=== PATIENT | male | born 1965 | race Caucasian/White ===

== ENCOUNTER 2020-08-25 13:56 | Emergency (ER) | payer MEDICARE ==
[~2020-08-25] VITALS: Ht 182.9 cm; Wt 83.0 kg
[2020-08-25] MEDS ORDERED: IV NORMAL SALINE 1,000ML 1,000 ML IV ONE ×3 (14:30→16:30)
--- NOTE | 2020-08-25 14:58 | RAD ---
EXAM: CT head without contrast INDICATION: Seizure and fall from standing COMPARISON: None TECHNIQUE: Axial CT imaging through the head without intravenous contrast. One or more of the following individualized dose reduction techniques were utilized for this examinat ion: 1. Automated exposure control 2. Adjustment of the mA and/or kV according to patient size 3. Use of iterative reconstruction technique. FINDINGS: The ventricles and sulci are prominent. There is a mild burden of periventricular and deep hypoattenu ating white matter lesions. Silva-white matter differentiation is maintained. There is no intracrania l hemorrhage, acute infarct, or mass lesion. Basal cisterns are clear. The skull is intact. There is a small right posterior parietal scalp contusion. The visualized parana aureliano sinuses and mastoid air cells are clear. Globes and orbits are intact. IMPRESSION: 1. No acute intracranial abnormality. 2. Small right parietal scalp contusion. Electronically signed by: Tea Yates MD (08/25/2020 2:56 PM) [id number]
--- NOTE | 2020-08-25 15:09 | RAD ---
EXAM: CHEST 1 VIEW History: Dyspnea COMPARISON: None available. TECHNIQUE: Single portable radiograph of the chest FINDINGS: The cardiac silhouette is unremarkable. The lungs are clear bilaterally. The costophrenic sulci are clear and well demarcated. Left-sided Port-A-Cath is identified.. IMPRESSION: No radiographic evidence of an acute cardiopulmonary process. Electronically signed by: Dario Willis MD (08/25/2020 3:06 PM) [id number]
[2020-08-25 15:15] LABS: BASO % 0 % (0-3); EOS % 0 % (0-3); HEMATOCRIT 37.4 % (39.0-53.0); HEMOGLOBIN 12.2 g/dL (13.0-17.5); LYMPH # 0.6 x10^3/uL (1.0-4.8); LYMPH % 16 % (24-48); MEAN CORPUSCULAR HEMOGLOBIN 27 pg (25-35); MEAN CORPUSCULAR HGB CONC 33 g/dL (31-37); MEAN CORPUSCULAR VOLUME 83 fL (79-100); MONO # 0.3 x10^3/uL (0.0-1.1); MONO % 8 % (0-9); NEUT # 2.6 x10^3uL (1.8-7.7); NEUT % 75 % (31-73); PLATELET COUNT 123 x10^3/uL (140-400); RED BLOOD COUNT 4.54 x10^6/uL (4.30-5.70); RED CELL DISTRIBUTION WIDTH 16.4 % (11.5-14.5); WHITE BLOOD COUNT 3.5 x10^3/uL (4.0-11.0)
--- NOTE | 2020-08-25 15:18 | PHYS DOC ---
Past History Past Medical History: Cancer, Diabetes, Hypertension, Seizure, Other Additional Past Medical Histor: Gout Past Surgical History: Knee Replacement Additional Smoking Information: cigars Alcohol Use: None General Adult EDM: Chief Complaint: SEIZURE HPI: HPI: Patient is a 54-year-old male brought in by EMS after he was found on the ground, bystanders reported seizure-like activity. On EMS arrival he was postictal. Patient complaining of a laceration to the back of his head. States that he was putting things in his car that is lasting he remembers before waking up in the ambulance. Patient states he has a history of seizures, last seizure 1 year ago but was not prescribed any medications afterwards. Patient has multiple complaints and says he has not felt well for the past 3 days. States he has had fatigue, shortness of breath, nonproductive cough, vomiting and diarrhea, multiple aches and pains that are chronic. Patient denies any known sick contacts. Patient does not recall all of his medications. Last tetanus vaccine 3 years ago. Has a history of multiple adenoma but does not member his medication Review of Systems: Review of Systems: All other systems within normal limits except for as noted in the HPI Current Medications: Current Meds: Current Medications Medications (Trade) Dose Ordered Sig/Melvi Start Time Stop Time Status Last Admin Dose Admin Sodium Chloride 1,000 ml @ 1,000 mls/hr 1X ONCE 08/25/20 14:30 08/25/20 15:29 UNV Physical Exam: PE: Constitutional: Well developed, well nourished, no acute distress, non-toxic appearance. [] HENT: Normocephalic, small hematoma to parietal scalp with approximately 2 cm laceration, bilateral external ears normal, nose normal. [] Eyes: PERRLA, conjunctiva normal, no discharge. [] Neck: No rigidity, supple, no stridor. [] Cardiovascular: Regular rate and rhythm, brisk cap refill [] Lungs & Thorax: Non labored symmetric respirations, no tachypnea or respiratory distress [] Abdomen: Soft, nondistended. Skin: Warm, dry, no erythema, no rash. [] Back: No tenderness, no CVA tenderness. [] Extremities: No deformities, range of motion grossly intact, no lower extremity edema [] Neurologic: Alert and oriented X 3, no focal deficits noted. [] Psychologic: Affect normal, judgement normal, mood normal. [] Current Patient Data: Vital Signs: Vital Signs Date Time Temp Pulse Resp B/P (MAP) Pulse Ox O2 Delivery O2 Flow Rate FiO2 08/25/20 14:05 96.9 63 16 164/111 (128) 97 Room Air EKG: EKG: Sinus tachycardia, heart rate 106 bpm, normal intervals, no ectopy, no ST elevation or depression [] Radiology/Procedures: Radiology/Procedures: XAM: CT head without contrast INDICATION: Seizure and fall from standing COMPARISON: None TECHNIQUE: Axial CT imaging through the head without intravenous contrast. One or more of the following individualized dose reduction techniques were utilized for this examination: 1. Automated exposure control 2. Adjustment of the mA and/or kV according to patient size 3. Use of iterative reconstruction technique. FINDINGS: The ventricles and sulci are prominent. There is a mild burden of periventricular and deep hypoattenuating white matter lesions. Silva-white matter differentiation is maintained. There is no intracranial hemorrhage, acute infarct, or mass lesion. Basal cisterns are clear. The skull is intact. There is a small right posterior parietal scalp contusion. The visualized paranasal sinuses and mastoid air cells are clear. Globes and orbits are intact. IMPRESSION: 1. No acute intracranial abnormality. 2. Small right parietal scalp contusion. []EXAM: CHEST 1 VIEW History: Dyspnea COMPARISON: None available. TECHNIQUE: Single portable radiograph of the chest FINDINGS: The cardiac silhouette is unremarkable. The lungs are clear bilaterally. The costophrenic sulci are clear and well demarcated. Left-sided Port-A-Cath is identified.. IMPRESSION: No radiographic evidence of an acute cardiopulmonary process. Impressions: Wound cleaned and irrigated with saline, no anesthetic used, 2 natasha placed over laceration without complication. Heart Score: Risk Factors: Risk Factors: DM, Current or recent (<one month) smoker, HTN, HLP, family history of CAD, obesity. Risk Scores: Score 0 - 3: 2.5% MACE over next 6 weeks - Discharge Home Score 4 - 6: 20.3% MACE over next 6 weeks - Admit for Clinical Observation Score 7 - 10: 72.7% MACE over next 6 weeks - Early Invasive Strategies Course & Med Decision Making: Course & Med Decision Making Pertinent Labs and Imaging studies reviewed. (See chart for details) She reports her lactic acid, likely secondary to seizure. Patient is awake aler t and oriented, discussed starting statin medication and patient agrees to plan. Given loading dose of Keppra in the emergency department information to follow-up with neurology for further seizure management. [] Sharron Disclaimer: Sharron Disclaimer: This electronic medical record was generated, in whole or in part, using a voice recognition dictation system. Departure Departure: Impression: Primary Impression: Seizure Additional Impression: Fall Disposition: 01 DC HOME SELF CARE/HOMELESS Condition: STABLE Referrals: PCPAPOLONIA (PCP) MANISHA FLETCHER MD Patient Instructions: Seizure, Adult Additional Instructions: You have been tested for or diagnosed with COVID-19. It is an infection caused by a new type of coronavirus. COVID-19 will cause cold-like or mild flu symptoms in most. It can cause more severe symptoms like problems breathing in some. There is no treatment for COVID-19. The body will clear the infection over time. Self-care will help to ease discomfort. Steps to Take: Self-Care Rest as needed. Healthy habits may help you feel better. Steps include: Choose healthy foods including fruits and vegetables. Drink water throughout the day. Get plenty of sleep each night. If you smoke, try to quit. It may ease breathing. Avoid alcohol. Keep Others Healthy The virus can spread to others. Droplets are released every time you sneeze or cough. The droplets can get into the mouth, nose, or eyes of people near you and lead to infection. To lower the chances of spreading COVID-19 to others: Stay at home until your doctor has said it is safe to leave. If you tested positive this will mean staying isolated until both of the following are true: At least 7 days have passed since the start of illness. You are free of fever for at least 72 hours without the use of medicine. During this time: - Avoid public areas, events, or transportation. Do not return to work or school until your doctor has said it is safe to do so. - Call ahead if you need to go to a medical center. Let them know you may have COVID-19. It will help them guide you where to go. They may also ask you to wear a facemask when you come to the office. - If you call for emergency medical services, let them know you may have COVID- 19. While at home: - Try to avoid close contact with others. Stay about 6 feet away. - If possible, spend most of your time in a separate room from others. - Use a face mask if you will be in close contact with others such as sharing a room or vehicle. - Have someone wipe down common surfaces in the home. Use household cruise counselor every day on areas like doorknobs, counters, or sinks. - Cough or sneeze into a tissue. Throw the tissue away right after use. If a tissue is not available, cough or sneeze into your elbow. - Wash your hands often. Wash them after sneezing or coughing. Use soap and water and wash for at least 20 seconds. Alcohol based hand still cleaner tube can be used if soap and water is not available. - Do not prepare food for others. Avoid sharing personal items like forks, spoons, or toothbrushes. - Avoid close contact with pets while you are sick. There is no evidence of the virus passing to pets. This is a safety step until more is known about this virus. Isolation can be frustrating. Social interaction can help. Keep in touch with friends and family through phone and tech options. You can still interact with others in your home, just keep a safe distance of about 6 feet. Follow-up: Your doctors office will check in with you to see if there are any changes in your health. You may be asked to keep track of symptoms to share with them. They will also let you know when you are clear to be in public again. Problems to Look Out For: Contact your doctor if your recovery is not going as you expect. Get emergency care if you have problems such as: - Trouble breathing - Nonstop chest pain or pressure - Changes in awareness, confusion, or problems waking - Lips or face have bluish color - Worsening of symptoms If you think you have an emergency, call for emergency medical services right away. As taken from [facility] Levetiracetam (LEVETIRACETAM) 500 Mg Tab.er.24h 1 TAB PO BID for seizure for 30 Days, #60 TAB 0 Refills Prov: TORRES GAN MD 08/25/20 TORRES GAN MD Aug 25, 2020 15:18
[2020-08-25 15:24] LABS: CALCIUM 8.4 mg/dL (8.5-10.1); CREATININE 1.5 mg/dL (0.7-1.3); POTASSIUM 3.5 mmol/L (3.5-5.1)
--- NOTE | 2020-08-25 15:24 | EKG ---
[address] [address] Test Date: 2020-08-25 Test Time: 14:40:31 Pat Name: JORI NUÑEZ Department: Room: Gender: M Wellness Specialist: JUSTUS : 1965 Requested By: TORRES GAN Order Number: [id number] Reading MD: Ant Ames Measurements Intervals [place] Rate: 106 P: 0 TX: 164 QRS: 12 QRSD: 78 T: 61 QT: 336 QTc: 448 Interpretive Statements SINUS TACHYCARDIA Electronically Signed On 08-31-2020 14:48:58 INTERPRETIVE NATURALIST by Ant Ames
[2020-08-25 15:30] LABS: ALBUMIN 3.2 g/dL (3.4-5.0); ALBUMIN/GLOBULIN RATIO 0.4 (1.0-1.7); MAGNESIUM 1.5 mg/dL (1.8-2.4); TOTAL BILIRUBIN 0.5 mg/dL (0.2-1.0)
[2020-08-25 15:42] LABS: INFLUENZA A PATIENT NEGATIVE (NEGATIVE); INFLUENZA B PATIENT NEGATIVE (NEGATIVE)
[2020-08-25 16:00] VITALS: BP 154/95
[2020-08-25] MEDS ORDERED: levETIRAcetam 500 MG TABLET PO STA (16:28)
[2020-08-25] MEDS ORDERED: LEVE500T21 PO (16:55)
== END 2020-08-25 17:15 | disposition home or self-care (01) ==
LOC: EDBD 13:56 → ER 13:56
DX: S01.01XA Laceration without foreign body of scalp, initial encounter (principal); R56.9 Unspecified convulsions; E11.9 Type 2 diabetes mellitus without complications; I10 Essential (primary) hypertension; F17.210 Nicotine dependence, cigarettes, uncomplicated; Z20.828 Contact with and (suspected) exposure to other viral communicable diseases; W18.39XA Other fall on same level, initial encounter; Y93.89 Activity, other specified; Y92.89 Other specified places as the place of occurrence of the external cause; Y99.8 Other external cause status
CPT/HCPCS: 12001; 36415; 70450; 71046; 80053; 83605; 83735; 85025; 87804; 93005; 96360; 99285; C9803; G0480; J7030; U0003

== ENCOUNTER 2020-09-30 13:23 | Emergency (ER) | payer MEDICARE ==
[~2020-09-30] VITALS: Ht 182.9 cm; Wt 83.0 kg
[~2020-09-30 13:23] MED LIST: LEVE500T21 PO
--- NOTE | 2020-09-30 13:36 | PHYS DOC ---
Past History Past Medical History: Cancer, Diabetes, Hypertension, Seizure, Other Additional Past Medical Histor: Gout Past Surgical History: Knee Replacement Alcohol Use: None General Adult EDM: Chief Complaint: SUTURE/STAPLE REMOVAL HPI: HPI: Patient is a 54 year old male that presents to the ED for a staple removal. Pt had natasha placed in the right posterior parietal region 1 month ago. Patient states he was able to get all but one staple removed on his own. Patient just moved here and did not have a vehicle to come to the ED for removal of the staple. No other complaints or symptoms at this time. Review of Systems: Review of Systems: Constitutional: Denies fever or chills Eyes: Denies redness or eye pain HENT: Denies nasal congestion or sore throat. Healed laceration to the scalp with one remaining staple. Musculoskeletal: Denies back pain or joint pain Integument: Denies rash or skin lesions Neurologic: Denies headache, focal weakness or sensory changes Complete systems were reviewed and found to be within normal limits, except as documented in this note. Allergies: Allergies: Allergies Coded Allergies Type Severity Reaction Last Updated Verified No Known Drug Allergies 08/25/20 No Physical Exam: PE: Constitutional: Well developed, well nourished, no acute distress, non-toxic appearance HENT: Normocephalic, atraumatic. one staple on the right posterior parietal region of the scalp. Well-healed scar, no redness, warm, or unhealed wounds. Eyes: EOMI, conjunctiva normal, no discharge Neck: Normal range of motion, no tenderness, supple Skin: Warm, dry, no erythema, no rash Extremities: No tenderness, ROM intact, no edema Neurologic: Alert and oriented X 3, normal motor function, normal sensory fun ction, no focal deficits noted Psychologic: Affect normal, judgment normal Course & Med Decision Making: Course & Med Decision Making Patient presented to the ED for a staple removal. No complications or complaints. Staple removed. Patient stable for discharge with outpatient follow- up with PCP. Discussed findings and plan with patient, who acknowledges understanding and agreement. Sharron Disclaimer: Sharron Disclaimer: This electronic medical record was generated, in whole or in part, using a voice recognition dictation system. Additional Procedures Progress Staple Removal Verbal consent obtained. Time out performed. Hand hygiene utilized. One staple was removed from the right posterior parietal region. Patient tolerated procedure well and without difficulty. Empiric antibiotic ointment applied. Departure Departure: Impression: Primary Impression: Encounter for staple removal Disposition: 01 DC HOME SELF CARE/HOMELESS Condition: STABLE Referrals: PCPAPOLONIA (PCP) Patient Instructions: Staple Removal, Care After KELLY MARSH DO Sep 30, 2020 13:36
[2020-09-30] MEDS ORDERED: NEOMY/BACITR/POLYMYXIN OINT PACKET. TP ONE (13:45)
== END 2020-09-30 13:38 | disposition home or self-care (01) ==
LOC: ER 13:23
DX: S01.01XD Laceration without foreign body of scalp, subsequent encounter (principal); E11.9 Type 2 diabetes mellitus without complications; I10 Essential (primary) hypertension; X58.XXXD Exposure to other specified factors, subsequent encounter
CPT/HCPCS: 99282